=== PATIENT | male | born 1935 | race Caucasian/White ===

== ENCOUNTER 2021-12-11 17:34 | Inpatient (IN) | payer OTHER, MEDICAID ==
[~2021-12-11] VITALS: Ht 170.2 cm; Wt 66.7 kg
[2021-12-11 17:52] VITALS: BP_SYST 150
[2021-12-11] MEDS ORDERED: NACL 0.9% 1,000 ML IV ONE (19:00)
[2021-12-11] MEDS ORDERED: METO25TA3 PO (19:06)
[2021-12-11] MEDS ORDERED: DONE10TA44 PO (19:06)
[2021-12-11] MEDS ORDERED: FINA5TAB3 PO (19:06)
[2021-12-11] MEDS ORDERED: METF-518 PO (19:06)
[2021-12-11 19:12] LABS: BASOPHILS % (AUTO) 0.5 % (0.0-2.0); EOSINOPHILS # (AUTO) 0.1 K/uL (0.0-0.4); EOSINOPHILS % (AUTO) 1.3 % (0.0-4.0); HEMATOCRIT 37.9 % (36-54); HEMOGLOBIN 12.8 g/dL (14.0-18.0); LYMPHOCYTES % (AUTO) 13.2 % (20.5-51.5); MEAN CORPUSCULAR HEMOGLOBIN 30 pg (27-31); MEAN CORPUSCULAR HGB CONC 34 % (32-36); MEAN CORPUSCULAR VOLUME 88 fL (79.0-98.0); MONOCYTES # (AUTO) 0.5 K/uL (0.0-1.0); MONOCYTES % (AUTO) 6.4 % (1.7-9.3); NEUTROPHILS # (AUTO) 5.8 K/uL (1.8-7.7); NEUTROPHILS % (AUTO) 78.6 % (40.0-70.0); PLATELET COUNT (AUTO) 250 K/uL (130-430); RED BLOOD CELL COUNT(AUTO) 4.29 MIL/uL (4.2-6.2); RED CELL DISTRIBUTION WIDTH 14.4 % (9.0-15.0); WHITE BLOOD COUNT (AUTO) 7.4 K/uL (4.8-10.8)
[2021-12-11 19:25] LABS: ANION GAP 11 (5-15); CALCIUM 8.4 mg/dL (8.4-11.0); CHLORIDE 107 mmol/L (98-107); CREATININE 1.49 mg/dL (0.55-1.30); GLUCOSE 193 mg/dL (70-99); POTASSIUM 4.2 mmol/L (3.5-5.1); SODIUM SERUM 145 mmol/L (136-145); UREA NITROGEN, BLOOD 20 mg/dL (8-21)
[2021-12-11 19:26] LABS: PROTHROMBIN TIME 10.4 SECS (9.5-12.5)
[2021-12-11 19:38] LABS: ALANINE AMINOTRANSFERASE 21 U/L (12-78); ALBUMIN 3.2 g/dL (3.4-4.8); ASPARTATE AMINOTRANSFERASE 21 U/L (10-37); TOTAL BILIRUBIN 0.4 mg/dL (0.0-1.0)
[2021-12-11 19:42] LABS: ACETAMINOPHEN < 1 ug/mL (1-30); ALCOHOL, BLOOD < 3 mg/dL (<10)
[2021-12-11] MEDS ORDERED: NACL 0.9% 1,250 ML IV ONE (22:00)
[2021-12-11] MEDS ORDERED: ASPIRIN 325 MG TABLET PO ONE (22:15)
[2021-12-11 22:19] LABS: BILIRUBIN,URINE NEGATIVE (NEGATIVE); BLOOD, URINE 3+ (NEGATIVE); COLOR,URINE YELLOW (YELLOW); GLUCOSE,URINE NEGATIVE (NEGATIVE); KETONES,URINE NEGATIVE (NEGATIVE); LEUKOCYTE ESTERASE ,URINE NEGATIVE (NEGATIVE); NITRITE, URINE NEGATIVE (NEGATIVE); PROTEIN URINE NEGATIVE (NEGATIVE); UROBILINOGEN,URINE 0.2 (0.2-1.0)
[2021-12-11 22:21] LABS: CLARITY/URINE HAZY (CLEAR)
[2021-12-11 22:27] LABS: BACTERIA,URINE FEW /HPF (None Seen); MUCUS,URINE None Seen /LPF (None Seen); RBC,URINE 20-50 /HPF (0-3); WBC,URINE 0-3 /HPF (0-3)
[2021-12-11 22:35] LABS: BARBITURATE, URINE NEGATIVE (NEG <=200); BENZODIAZEPINE, URINE NEGATIVE (NEG <=150); CANNABINOID, URINE NEGATIVE (NEG <=50); COCAINE, URINE NEGATIVE (NEG <=150); METHAMPHETAMINES SCREEN,URINE NEGATIVE (NEG <=500); OPIATE, URINE NEGATIVE (NEG <=100); PHENCYCLIDINE SCREEN,URINE NEGATIVE (NEG <=25); UR TRICYCLIC ANTIDEPRESSANTS NEGATIVE (NEG <=300); URINE AMPHETAMINE NEGATIVE (NEG <=500); URINE METHADONE NEGATIVE (NEG <=200); URINE OXYCODONE SCREEN NEGATIVE (NEG <=100); URINE PROPOXYPHENE SCREEN NEGATIVE (NEG <=300)
[2021-12-11] MEDS ORDERED: METF-379 PO (23:10)
[2021-12-11] MEDS ORDERED: FINA5TAB11 PO (23:10)
[2021-12-11] MEDS ORDERED: LIP40 PO (23:10)
[2021-12-11] MEDS ORDERED: NUT.237L28 PO (23:10)
[2021-12-11] MEDS ORDERED: MIRT-115 PO (23:10)
[2021-12-11] MEDS ORDERED: GLIP10TA11 PO (23:10)
[2021-12-11] MEDS ORDERED: LEVO100C4 PO (23:10)
[2021-12-11] MEDS ORDERED: FURO-150 PO (23:10)
[2021-12-11] MEDS ORDERED: DONE10TA4 PO (23:10)
[2021-12-11] MEDS ORDERED: METO25TA6 PO (23:10)
[2021-12-11] MEDS ORDERED: MEMA10TA56 PO (23:10)
[2021-12-12] MEDS: D5/0.45 NS 1,000 ML IV SCH ×3 (00:25→18:45)
[2021-12-12 02:40] VITALS: BP_SYST 138
[2021-12-12 04:00] VITALS: BP_SYST 142
[2021-12-12] MEDS: QUEtiapine FUMARATE 25 MG TABLET PO SCH ×2 (09:00→21:20)
[2021-12-12] MEDS ORDERED: HYDROcodone/ACETAMIN 10-325 MG TAB PO PRN (11:00)
[2021-12-12] MEDS ORDERED: ONDANSETRON HCL 4 MG/2 ML VIAL IVP PRN (11:00)
[2021-12-12] MEDS ORDERED: LORazepam 2 MG/ML VIAL IVP PRN (11:00)
[2021-12-12] MEDS ORDERED: ACETAMINOPHEN 325 MG TABLET PO PRN ×2 (11:00→11:30)
[2021-12-12] MEDS ORDERED: HYDROcodone/ACETAMIN 5-325 MG TAB (NORCO/ VICODIN) PO PRN (11:00)
[2021-12-12] MEDS ORDERED: NALOXONE HCL 0.4 MG/ML AMP (NARCAN) IVP PRN ×2 (11:00)
[2021-12-12] MEDS ORDERED: INSULIN REGULAR, HUMAN 100 UNITS/ML, 10 ML VIAL (humuLIN R) SUBCUT PRN (11:00)
[2021-12-12 12:46] VITALS: BP_SYST 166
[2021-12-12 15:07] LABS: BASOPHILS % (AUTO) 0.4 % (0.0-2.0); EOSINOPHILS # (AUTO) 0.1 K/uL (0.0-0.4); HEMATOCRIT 35.3 % (36-54); LYMPHOCYTES % (AUTO) 14.4 % (20.5-51.5); MEAN CORPUSCULAR HEMOGLOBIN 30 pg (27-31); MEAN CORPUSCULAR HGB CONC 34 % (32-36); MEAN CORPUSCULAR VOLUME 89 fL (79.0-98.0); MONOCYTES # (AUTO) 0.6 K/uL (0.0-1.0); MONOCYTES % (AUTO) 8.2 % (1.7-9.3); NEUTROPHILS # (AUTO) 5.4 K/uL (1.8-7.7); PLATELET COUNT (AUTO) 224 K/uL (130-430); RED BLOOD CELL COUNT(AUTO) 3.95 MIL/uL (4.2-6.2); RED CELL DISTRIBUTION WIDTH 14.4 % (9.0-15.0); WHITE BLOOD COUNT (AUTO) 7.1 K/uL (4.8-10.8)
[2021-12-12 15:47] LABS: ANION GAP 7 (5-15); CALCIUM 8.8 mg/dL (8.4-11.0); CHLORIDE 107 mmol/L (98-107); CREATININE 1.52 mg/dL (0.55-1.30); GLUCOSE 188 mg/dL (70-99); POTASSIUM 3.9 mmol/L (3.5-5.1); SODIUM SERUM 142 mmol/L (136-145); UREA NITROGEN, BLOOD 17 mg/dL (8-21)
[2021-12-12 16:04] LABS: THYROID STIMULATING HORMONE 0.02 uIu/mL (0.36-3.74)
[2021-12-12 16:41] VITALS: BP_SYST 157
[2021-12-12 18:18] LABS: CHOLESTEROL 108 mg/dL (<200); HDL CHOLESTEROL 41 mg/dL (>45); LDL CHOLESTEROL 49 mg/dL (<100); TRIGLYCERIDES 99 mg/dL (30-150)
[2021-12-12 20:00] VITALS: BP_SYST 161
[2021-12-12] MEDS ORDERED: MEMANTINE HCL PO SCH (21:00)
[2021-12-12] MEDS: METOPROLOL TARTRATE 25 MG TABLET PO SCH (21:20)
[2021-12-12] MEDS: ATORVASTATIN 20 MG TABLET PO SCH (21:21)
[2021-12-12] MEDS: metFORMIN HCL 500 MG TABLET PO SCH (21:21)
[2021-12-12] MEDS: FUROSEMIDE 20 MG TABLET PO SCH (21:21)
[2021-12-12] MEDS: MIRTAZAPINE 15 MG TABLET PO SCH (21:22)
[2021-12-12] MEDS: MEMANTINE HCL 5 MG TABLET PO SCH (21:23)
[2021-12-13 00:21] VITALS: BP_SYST 145
[2021-12-13] MEDS: D5/0.45 NS 1,000 ML IV SCH ×2 (05:36→13:32)
[2021-12-13] MEDS ORDERED: LORazepam 1 MG TABLET PO PRN (05:45)
[2021-12-13] MEDS: LEVOTHYROXINE SODIUM 0.1 MG TABLET PO SCH (06:32)
[2021-12-13 08:00] VITALS: BP_SYST 139
[2021-12-13 08:04] LABS: ANION GAP 8 (5-15); CALCIUM 8.6 mg/dL (8.4-11.0); CHLORIDE 108 mmol/L (98-107); CREATININE 1.25 mg/dL (0.55-1.30); GLUCOSE 140 mg/dL (70-99); PHOSPHORUS 2.2 mg/dL (2.7-4.5); POTASSIUM 4.2 mmol/L (3.5-5.1); SODIUM SERUM 143 mmol/L (136-145); UREA NITROGEN, BLOOD 17 mg/dL (8-21)
[2021-12-13] MEDS: metFORMIN HCL 500 MG TABLET PO SCH ×2 (08:37→20:35)
[2021-12-13] MEDS: QUEtiapine FUMARATE 25 MG TABLET PO SCH ×2 (08:37→20:36)
[2021-12-13] MEDS: METOPROLOL TARTRATE 25 MG TABLET PO SCH ×2 (08:37→20:37)
[2021-12-13] MEDS: MEMANTINE HCL 5 MG TABLET PO SCH ×2 (08:37→20:35)
[2021-12-13] MEDS ORDERED: [UNRECOGNIZED DRUG - OTHER] PO SCH (09:00)
[2021-12-13] MEDS ORDERED: NUT TX GLUC INTOLER LAC FR SOY PO SCH (09:00)
[2021-12-13] MEDS ORDERED: NON-FORMULARY MEDICATION (Donepezil Hcl (Aricept) 1 TAB) PO SCH (09:00)
[2021-12-13] MEDS ORDERED: NON-FORMULARY MEDICATION (Levothyroxine Sodium (Levothyroxine) 1 TAB) PO SCH (09:00)
[2021-12-13] MEDS: FINASTERIDE 5 MG TABLET (PROSCAR) PO SCH (09:08)
[2021-12-13 12:00] VITALS: BP_SYST 98
[2021-12-13 12:11] LABS: BASOPHILS # (AUTO) 0.1 K/uL (0.0-0.2); BASOPHILS % (AUTO) 0.6 % (0.0-2.0); EOSINOPHILS # (AUTO) 0.2 K/uL (0.0-0.4); EOSINOPHILS % (AUTO) 2.6 % (0.0-4.0); HEMATOCRIT 34.1 % (36-54); HEMOGLOBIN 11.9 g/dL (14.0-18.0); LYMPHOCYTES # (AUTO) 1.1 K/uL (1.0-5.5); LYMPHOCYTES % (AUTO) 13.2 % (20.5-51.5); MEAN CORPUSCULAR HEMOGLOBIN 31 pg (27-31); MEAN CORPUSCULAR HGB CONC 35 % (32-36); MEAN CORPUSCULAR VOLUME 89 fL (79.0-98.0); MONOCYTES # (AUTO) 0.6 K/uL (0.0-1.0); MONOCYTES % (AUTO) 7.9 % (1.7-9.3); NEUTROPHILS # (AUTO) 6.2 K/uL (1.8-7.7); NEUTROPHILS % (AUTO) 75.7 % (40.0-70.0); PLATELET COUNT (AUTO) 223 K/uL (130-430); RED BLOOD CELL COUNT(AUTO) 3.84 MIL/uL (4.2-6.2); RED CELL DISTRIBUTION WIDTH 14.2 % (9.0-15.0); WHITE BLOOD COUNT (AUTO) 8.2 K/uL (4.8-10.8)
[2021-12-13 16:00] VITALS: BP_SYST 144
[2021-12-13 20:00] VITALS: BP_SYST 152
[2021-12-13] MEDS: MIRTAZAPINE 15 MG TABLET PO SCH (20:34)
[2021-12-13] MEDS: ATORVASTATIN 20 MG TABLET PO SCH (20:36)
[2021-12-13] MEDS: FUROSEMIDE 20 MG TABLET PO SCH (20:36)
[2021-12-13] MEDS ORDERED: DONEPEZIL HCL 5 MG TABLET (ARICEPT) PO SCH (21:00)
[2021-12-14 00:32] VITALS: BP_SYST 148
[2021-12-14 04:00] VITALS: BP_SYST 145
[2021-12-14] MEDS: LEVOTHYROXINE SODIUM 0.1 MG TABLET PO SCH (06:31)
[2021-12-14 07:25] LABS: BASOPHILS % (AUTO) 0.6 % (0.0-2.0); EOSINOPHILS # (AUTO) 0.6 K/uL (0.0-0.4); EOSINOPHILS % (AUTO) 8.3 % (0.0-4.0); HEMATOCRIT 35.2 % (36-54); HEMOGLOBIN 12.1 g/dL (14.0-18.0); LYMPHOCYTES # (AUTO) 1.7 K/uL (1.0-5.5); MEAN CORPUSCULAR HEMOGLOBIN 31 pg (27-31); MEAN CORPUSCULAR HGB CONC 34 % (32-36); MEAN CORPUSCULAR VOLUME 89 fL (79.0-98.0); MONOCYTES # (AUTO) 0.5 K/uL (0.0-1.0); MONOCYTES % (AUTO) 6.6 % (1.7-9.3); NEUTROPHILS # (AUTO) 4.7 K/uL (1.8-7.7); NEUTROPHILS % (AUTO) 61.5 % (40.0-70.0); PLATELET COUNT (AUTO) 230 K/uL (130-430); RED BLOOD CELL COUNT(AUTO) 3.93 MIL/uL (4.2-6.2); RED CELL DISTRIBUTION WIDTH 14.8 % (9.0-15.0); WHITE BLOOD COUNT (AUTO) 7.6 K/uL (4.8-10.8)
[2021-12-14] MEDS: METOPROLOL TARTRATE 25 MG TABLET PO SCH (08:57)
[2021-12-14] MEDS: D5/0.45 NS 1,000 ML IV SCH (08:58)
[2021-12-14] MEDS: metFORMIN HCL 500 MG TABLET PO SCH (08:58)
[2021-12-14] MEDS: QUEtiapine FUMARATE 25 MG TABLET PO SCH (08:58)
[2021-12-14] MEDS ORDERED: QUEtiapine FUMARATE 25 MG TABLET PO SCH (09:00)
[2021-12-14] MEDS: FINASTERIDE 5 MG TABLET (PROSCAR) PO SCH (09:04)
[2021-12-14] MEDS: MEMANTINE HCL 5 MG TABLET PO SCH (09:05)
[2021-12-14 09:10] LABS: ANION GAP 8 (5-15); CALCIUM 8.6 mg/dL (8.4-11.0); CHLORIDE 109 mmol/L (98-107); CREATININE 1.21 mg/dL (0.55-1.30); GLUCOSE 66 mg/dL (70-99); POTASSIUM 3.6 mmol/L (3.5-5.1); SODIUM SERUM 144 mmol/L (136-145); UREA NITROGEN, BLOOD 23 mg/dL (8-21)
[2021-12-14 09:11] LABS: ALANINE AMINOTRANSFERASE 19 U/L (12-78); ALBUMIN 2.7 g/dL (3.4-4.8); ASPARTATE AMINOTRANSFERASE 20 U/L (10-37); PHOSPHORUS 3.1 mg/dL (2.7-4.5); TOTAL BILIRUBIN 0.3 mg/dL (0.0-1.0)
[2021-12-14] MEDS ORDERED: SER25 PO (09:51)
[2021-12-14 11:31] VITALS: BP_SYST 142
[2021-12-14] MEDS ORDERED: NORMAL SALINE 5 ML DISP.SYRIN IVF SCH (14:00)
[2021-12-14 14:50] VITALS: BP_SYST 136
== END 2021-12-14 14:00 | DRG 682 ==
LOC: SED 17:34 → STU 22:45
PROVIDERS: ADMIT Preventive Medicine Preventive Medicine/Occupational Environmental Medicine; ATTEND Preventive Medicine Preventive Medicine/Occupational Environmental Medicine
DX: N17.0 Acute kidney failure with tubular necrosis (principal); E43 Unspecified severe protein-calorie malnutrition; F03.91 Unspecified dementia, unspecified severity, with behavioral disturbance; E87.2 Acidosis; N13.2 Hydronephrosis with renal and ureteral calculous obstruction; E86.0 Dehydration; E11.65 Type 2 diabetes mellitus with hyperglycemia; E03.9 Hypothyroidism, unspecified; I10 Essential (primary) hypertension; E88.09 Other disorders of plasma-protein metabolism, not elsewhere classified; E78.5 Hyperlipidemia, unspecified; N40.0 Benign prostatic hyperplasia without lower urinary tract symptoms; D64.9 Anemia, unspecified; Z20.822 Contact with and (suspected) exposure to COVID-19; Z87.442 Personal history of urinary calculi; Z79.899 Other long term (current) drug therapy; Z68.23 Body mass index [BMI] 23.0-23.9, adult
CPT/HCPCS: 36415; 70450-TC; 71045; 76376; 80048; 80053; 80061; 80307; 81000; 82140; 82962; 83605; 83735; 84100; 84443; 84484; 85025; 85610-TC; 85730-TC; 87040; 93005; 93306; 97163-GP; 99291; G0378; G0480; G0481; G0482; J1815